=== PATIENT | female | born 1975 ===

== ENCOUNTER → 2020-12-12 08:21 | Outpatient (CLI) | payer OTHER | END | disposition home or self-care (01) | LOC: LAB 08:21 | PROVIDERS: ATTEND Emergency Medicine Pediatric Emergency Medicine | DX: Z03.818 Encounter for observation for suspected exposure to other biological agents ruled out (principal) ==

== ENCOUNTER 2021-01-07 07:26 | Outpatient (CLI) | payer OTHER | END 2021-01-07 07:28 | disposition home or self-care (01) | LOC: LAB 07:26 | PROVIDERS: ATTEND Emergency Medicine Pediatric Emergency Medicine | DX: Z03.818 Encounter for observation for suspected exposure to other biological agents ruled out (principal) ==